=== PATIENT | female | born 1975 | race Caucasian/White ===

== ENCOUNTER 2017-09-28 10:13 | Emergency (ER) | payer OTHER ==
[2017-09-28 10:19] VITALS: BP 150/68; PULSE 96; TEMP 97.8; BMI 28.3
[2017-09-28] MEDS ORDERED: KETOROLAC TROMETHAMINE 60 MG/2 ML VIAL IM ONE (11:19)
--- NOTE | 2017-09-28 11:19 | PDOC ---
History of Present Illness - General Chief Complaint: Pain Stated Complaint: PAIN/ SHOULDER, BACK Time Seen by Provider: 09/28/17 10:45 History Source: Patient Exam Limitations: No Limitations - History of Present Illness Initial Comments: 09/28/17 11:17 42-year-old female with no past medical history presents the ED with complaints of right shoulder right arm and right chest pain upon awakening this morning. Patient states he is worsened with movement and deep breathing. Patient states took nothing for the above and decided come to the ER. Patient denies radiation of pain to her left chest wall, shortness of breath, fever, chills, palpitations , abdominal pain or nausea. Patient also denies irregular menses recent travel, recent illness. Timing/Duration: 1-3 hours Severity: mild Associated Symptoms: reports: chest pain (right sided) Past History - Travel Traveled outside of the country in the last 30 days: No - Past Medical History Allergies/Adverse Reactions: Allergies Allergy/AdvReac Type Severity Reaction Status Date / Time No Known Allergies Allergy Verified 09/28/17 10:19 Home Medications: Ambulatory Orders NK [No Known Home Medication] 09/28/17 COPD: No Other medical history: NONE - Suicide/Smoking/Psychosocial Hx Smoking History: Never smoked Hx Alcohol Use: No Drug/Substance Use Hx: No Patient Lives Alone: No Lives with/in: spouse/SO Review of Systems - Review of Systems Able to Perform ROS?: Yes Constitutional: No: Symptoms Reported Respiratory: No: Symptoms reported Cardiac (ROS): Yes: Chest Pain (right sided) ABD/GI: No: Symptoms Reported Musculoskeletal: Yes: Joint Pain (ri ght shoulder), Muscle Pain (rt chest). No : Neck Pain Integumentary: No: Symptoms Reported Neurological: No: Symptoms reported *Physical Exam - Vital Signs Last Vital Signs Temp Pulse Resp BP Pulse Ox 97.8 F 96 H 20 150/68 98 09/28/17 10:15 09/28/17 10:15 09/28/17 10:15 09/28/17 10:15 09/28/17 10:15 - Physical Exam General Appearance: Yes: Nourished, Appropriately Dressed. No: Apparent Distress Neck: positive: Supple. negative: Tender, Decreased range of motion Respiratory/Chest: positive: Chest Tender (right sternal at 4-8 th rib extending to rt shoulder and mid axillary line), Lungs Clear, Normal Breath Sounds. negative: Respiratory Distress, Accessory Muscle Use Cardiovascular: positive: Regular Rhythm, Regular Rate. negative: Murmur Gastrointestinal/Abdominal: positive: Normal Bowel Sounds, Soft. negative: Distended, Tenderness Musculoskeletal: negative: CVA Tenderness Integumentary: positive: Normal Color, Warm, Moist. negative: Hives, Rash Neurologic: positive: Motor Strength 5/5 (ambulatory) Medical Decision Making - Medical Decision Making 09/28/17 11:24 Pt here with right-sided chest pain radiating to her shoulder and arm. Patient states is worse with movement and deep breathing. Patient states is not taking the for the pain and decided to come to the ER for further evaluation. Exam had reproducible chest pain to the right chest wall. Patient had an EKG in triage which was negative for acute findings. Patient ordered for IM Toradol. 09/28/17 12:28 Patient currently states is asymptomatic and requesting to go home. Patient recommended to take Motrin and apply heating to the affected area. *DC/Admit/Observation/Transfer Diagnosis at time of Disposition: Musculoskeletal chest pain, Right-sided chest wall pain - Discharge Dispostion Disposition: HOME Condition at time of disposition: Improved - Referrals Referrals: Pamela Paredes MD [Primary Care Provider] - - Patient Instructions Printed Discharge Instructions: DI for Musculoskeletal Pain Additional Instructions: Please take 600 mg of Motrin every 8 hours for discomfort. may use a heating pad to the affected area also to alleviate your discomfort. Follow-up with your primary care physician and/or return to ED if symptoms return or worsen. - Post Discharge Activity
[2017-09-28] MEDS ORDERED: KETOROLAC TROMETHAMINE 60 MG/2 ML VIAL ONE (11:26)
--- NOTE | 2017-10-01 10:38 | EKG ---
Test Reason : Blood Pressure : / mmHG Vent. Rate : 087 BPM Atrial Rate : 087 BPM P-R Int : 146 ms QRS Dur : 072 ms QT Int : 354 ms P-R-T Axes : -04 007 019 degrees QTc Int : 425 ms NORMAL SINUS RHYTHM CANNOT RULE OUT INFERIOR INFARCT , AGE UNDETERMINED POSSIBLE ANTERIOR INFARCT , AGE UNDETERMINED ABNORMAL ECG NO PREVIOUS ECGS AVAILABLE Confirmed by KAMRYN EASON MD ([id number]) on 10/01/2017 10:37:48 AM Referred By: Confirmed By:KAMRYN EASON MD
== END 2017-09-28 12:20 | disposition home or self-care (01) ==
LOC: JER 10:13
PROC: 3E0233Z Introduction of Anti-inflammatory into Muscle, Percutaneous Approach (ICD-10-PCS; principal; 2017-09-28)
DX: R07.89 Other chest pain (principal)
CPT/HCPCS: 93005; 93010; 96372; 99282-25